=== PATIENT | female | born 1975 | race Caucasian/White ===

== ENCOUNTER 2019-11-02 09:44 | Emergency (ER) | payer MEDICARE, MEDICAID ==
[~2019-11-02] VITALS: Ht 162.6 cm; Wt 46.8 kg
[2019-11-02 09:52] VITALS: Ht 162.6 cm; Wt 46.8 kg
[2019-11-02] MEDS ORDERED: NEURONTIN600 MG PO (09:54)
[2019-11-02] MEDS ORDERED: OMEPRAZOLE20 M1 PO (09:54)
[2019-11-02] MEDS ORDERED: DICLOFENAC SODI50 MG PO (10:23)
[2019-11-02 11:01] VITALS: BP 143/92
== END 2019-11-02 11:02 | disposition home or self-care (01) ==
LOC: D.ER 09:44
DX: S93.401A Sprain of unspecified ligament of right ankle, initial encounter (principal); S93.601A Unspecified sprain of right foot, initial encounter; W10.9XXA Fall (on) (from) unspecified stairs and steps, initial encounter; M79.604 Pain in right leg; K21.9 Gastro-esophageal reflux disease without esophagitis